=== PATIENT | male | born 1975 | race Caucasian/White ===

== ENCOUNTER → 2021-08-05 | Outpatient (REF) | payer BC | LOC: M LAB REF 11:59 | PROVIDERS: ATTEND Physician Assistant | DX: J00 Acute nasopharyngitis [common cold] (principal) ==

== ENCOUNTER → 2024-10-07 | Outpatient (CLI) | payer BC | LOC: M WUC 11:15 | PROVIDERS: ATTEND Student in an Organized Health Care Education/Training Program | DX: M25.572 Pain in left ankle and joints of left foot (principal); M79.89 Other specified soft tissue disorders ==